=== PATIENT | female | born 1965 ===

== ENCOUNTER → 2018-11-12 | Outpatient (CLI) | payer SELFPAY | END | disposition home or self-care (01) | LOC: PLD 08:01 → LAB SHORT 08:01 | DX: D49.2 Neoplasm of unspecified behavior of bone, soft tissue, and skin (principal) | CPT/HCPCS: 88305 ==

== ENCOUNTER 2023-08-10 07:45 | Emergency (ER) | payer OTHER ==
[~2023-08-10] VITALS: Ht 165.1 cm; Wt 79.4 kg
[2023-08-10] MEDS ORDERED: ROSUVASTATIN CAL5 MG PO (08:24)
[2023-08-10] MEDS ORDERED: LOSA50 PO (08:24)
[2023-08-10] MEDS ORDERED: METF500 PO (08:24)
[2023-08-10 11:01] VITALS: BP 130/79
== END 2023-08-10 11:06 | disposition home or self-care (01) ==
LOC: ER 07:45
DX: S01.102A Unspecified open wound of left eyelid and periocular area, initial encounter (principal); W22.8XXA Striking against or struck by other objects, initial encounter; Z79.84 Long term (current) use of oral hypoglycemic drugs; Z79.899 Other long term (current) drug therapy
CPT/HCPCS: 12011; 73140; 99283-25

== ENCOUNTER 2024-06-02 07:31 | Day surgery (SDC) | payer OTHER ==
[2024-06-02] VITALS (15 sets, daily range): BP systolic 96–157; BP diastolic 64–95
[~2024-06-02] VITALS: Ht 159 cm; Wt 73.0 kg
[~2024-06-02 07:31] MED LIST: LOSA50 PO; Lactated Ringer's 1,000 ML IV SCH; METF500 PO; ROSUVASTATIN CAL5 MG PO; propofoL 40 ML IV ONE
--- NOTE | 2024-06-02 08:39 | NUR ---
History, Chart, Medications and Allergies reviewed before start of procedure. Patient up to Ambulate independently. Gait steady. Pre-Op teaching done. Pt verbalizes understanding. Patient confirms NPO status and agrees with scheduled surgery. Patient states colon prep results light yellow, without sediment. Patient States Post-Procedure ride home has been arranged.
--- NOTE | 2024-06-02 09:01 | NUR ---
06/02/24 0901 Isis Alan CONFIRMED AND REVIEWED H&P, MEDCICATIONS, ALLERGIES, MEDICAL HISTORY, RESPIRATORY HISTORY, VITAL SIGNS, 3-LEAD EKG, CONSENTS, AND PHYSICIAN ORDERS. PATIENT CONFIRMS NPO STATUS AND AGREES WITH SCHEDULED PROCEDURE. MONITOR INTACT WITH CONTINUOUS PULSE OXIMETRY, CAPNOGRAPHY, 3-LEAD EKG, INTERMITTENT BP. SUPPLEMENTAL O2 TO BE TITRATED THROUGHOUT PROCEDURE TO MAINTAIN O2 SATURATION ABOVE 90%. PATIENT DETERMINED TO BE ASA APPROPRIATE FOR PROPOFOL SEDATION PRIOR TO START OF PROCEDURE BY DR. EMI TIJERINA CLASS 2 AIRWAY: COMPLETE VISUALIZATION OF THE UV[facility].
--- NOTE | 2024-06-02 09:50 | NUR ---
DISCHARGE NOTE PT A&OX4, BREATHING RA, VSS, NO COMPLAINTS, TOLERATINV PO FLUIDS. FAMILY AT BEDSIDE. PT MOSTLY [place] SPEAKING- DISCHARGE INSTRUCTIONS GIVEN IN [place] AND UPPER [place], ALL QUESTIONS ANSWERED. Patient up to Ambulate independently. Gait steady. Discharge instructions reviewed with patient. Patient verbalizes understanding. Copy given to patient to take home. Discharged via wheelchair to private car for ride home.
== END 2024-06-02 09:50 | disposition home or self-care (01) ==
LOC: ORSCMMR 07:31 → ORD 08:30 → ORSCMMR 08:30
PROVIDERS: Internal Medicine Gastroenterology
PROC: 0DJD8ZZ Inspection of Lower Intestinal Tract, Via Natural or Artificial Opening Endoscopic (ICD-10-PCS; principal; 2024-06-02 08:30)
DX: K62.5 Hemorrhage of anus and rectum (principal); E11.9 Type 2 diabetes mellitus without complications; I10 Essential (primary) hypertension; Z79.84 Long term (current) use of oral hypoglycemic drugs; Z79.899 Other long term (current) drug therapy
CPT/HCPCS: 82947; J2704; J7120